=== PATIENT | male | born 1965 | race American Indian/Alaskan Native ===

== ENCOUNTER 2020-10-12 09:06 | Emergency (ER) | payer SELFPAY ==
[2020-10-13 06:06] VITALS: BP 133/62
== END 2020-10-13 05:45 | disposition home or self-care (01) ==
LOC: ED 09:06
DX: S09.90XA Unspecified injury of head, initial encounter (principal); F10.10 Alcohol abuse, uncomplicated; I10 Essential (primary) hypertension; Z86.69 Personal history of other diseases of the nervous system and sense organs; Z88.0 Allergy status to penicillin; W18.30XA Fall on same level, unspecified, initial encounter; Y93.89 Activity, other specified; Y92.89 Other specified places as the place of occurrence of the external cause; Y99.8 Other external cause status
CPT/HCPCS: 36415; 70450; 80048; 85025; 96361; 96374; 96375; 99284; J7030; 80053; 80320; G0480; J2060; J2405; Q0162